=== PATIENT | female | born 1975 ===

== ENCOUNTER 2023-01-23 15:21 | Emergency (ER) | payer OTHER ==
[~2023-01-23] VITALS: Ht 167.6 cm; Wt 81.6 kg
[2023-01-23] MEDS ORDERED: CITALOPRAM20 MG/10 M PO (16:00)
[2023-01-23 19:59] LABS: HEMATOCRIT 42.6 % (36.0-45.00); HEMOGLOBIN 14.5 g/dL (12.0-15.00); MEAN CELL VOLUME 80.1 fL (80.00-100.00); MEAN CORPUSCULAR HEMOGLOBIN 27.2 pg (27.00-32.0); MEAN CORPUSCULAR HGB CONC 33.9 g/dl (32.0-36.0); PLATELET COUNT 364 K/uL (150-450); RED BLOOD COUNT 5.32 M/uL (4.00-6.00)
[2023-01-23 21:45] LABS: ABG PH 7.431 (7.35-7.45); ABG PO2 75.8 mmHg (80-100); ABG pCO2 39.9 mmHg (35-45); BASE EXCESS 1.7 mmol/l; SaO2 95.5 %; Tco2 27.2 mmol/l; allen test SATISFACTORY; o2 21 %; puncture site RADIAL LEFT
[2023-01-23] MEDS ORDERED: AMOX-CLAV 875-1 EAC1 PO (22:15)
[2023-01-23] MEDS ORDERED: TUSSIN DM SYRU118 ML PO (22:15)
[2023-01-23] MEDS ORDERED: IPRATROPIU0.2 MG/1 M IH (22:15)
[2023-01-23] MEDS ORDERED: XOPENEX CO1.25 MG/0. IH (22:15)
[2023-01-23] MEDS ORDERED: MEDROLPACK PO (22:15)
== END 2023-01-23 23:19 | disposition home or self-care (01) ==
LOC: ER 15:22
PROVIDERS: Nurse Practitioner Family
DX: J40 Bronchitis, not specified as acute or chronic (principal); R05.8 Other specified cough; R51.9 Headache, unspecified; I10 Essential (primary) hypertension; F32.89 Other specified depressive episodes